=== PATIENT | male | born 1985 | race Caucasian/White ===

== ENCOUNTER 2017-03-23 13:50 | Inpatient (IN) | payer OTHER ==
[~2017-03-23] VITALS: Ht 188 cm; Wt 87.1 kg
--- NOTE | ~2017-03-23 | PA ---
Unit #: [id number] #: [id number] Patient: JOZEF HULL [id number] [facility] [address] [place] [address] [id number] MR#: [id number] NAME: JOZEF HULL ROOM: [facility] Age: 31 Sex: M Admission Date: 03/23/2017 : 1985 Date of Assessment: 03/24/2017 Attending Physician: Dean Bolanos M.D. Admitting Physician: Dean Bolanos M.D. Primary Care Physician: Primary Care Physician No PSYCHIATRIC ASSESSMENT DATE OF SERVICE 03/24/2017. INFORMANTS The patient, reliable and OLgila SCHULER. CHIEF COMPLAINT Opioid detox. HISTORY OF PRESENT ILLNESS Jozef is a 31-year-old man who presents that he has been unable to maintain sobriety from heroin use and he says "I want to end it all," but denied specific suicidal ideation, intent, or plan. He was readmitted for further detox. PAST PSYCHIATRIC HISTORY One previous admission to this facility for what appeared to be a substance-induced psychosis. He has no other psychiatric treatment plan at this point. FAMILY PSYCHIATRIC HISTORY None reported. SOCIAL HISTORY The patient is single and has some psychosocial support. Please see previous assessments for details. PAST MEDICAL HISTORY No chronic medical problems. MEDICATIONS None currently. ALLERGIES No known medication allergies. SUBSTANCE USE HISTORY The patient has a long history of opioid and amphetamine abuse. MENTAL STATUS EXAMINATION The patient presented as a mildly disheveled man, who appeared his stated age. He was cooperative with the examination. His speech was spontaneous and easily understood. His musculoskeletal examination was calm. His Unit #: [id number] #: [id number] Patient: JOZEF HULL mood was mildly anxious with a congruent affect. He was alert and fully oriented. Memory and concentration were fair. Thought processes were goal directed with no active psychosis. He denied suicidal ideation, intent, or plan. Insight and judgment, fair. Fund of knowledge and abstraction, fair. ASSETS AND LIABILITIES The patient knows local resources and presents voluntarily for treatment. Liabilities include difficulty maintaining sobriety and erratic housing and employment. ADMITTING DIAGNOSES AXIS I: Opioid dependence with withdrawal, uncomplicated; substance- induced mood disorder; and depressed. AXIS II: No diagnosis. AXIS III: Polysubstance withdrawal. AXIS IV: AXIS V: PSYCHIATRIC PLAN The patient was admitted and placed on the opioid detox protocol. Celexa 20 mg will be added for control of depression and trazodone as needed for insomnia. He will enroll in dual diagnosis groups and activities, and a physical examination and laboratory studies will be ordered and reviewed. TREATMENT GOALS Resolution of SI, improvement in insight, establishment of sobriety, and improvement in coping skills. DISCHARGE PLANNING Follow up with [facility]. ESTIMATED LENGTH OF STAY 5 days. Dictated by... Dean Bolanos M.D. IGNACIA/kellie TD: 03/27/2017 13:37 JOB #: [id number] PSYCHIATRIC ASSESSMENT Page 1 of 1 X Dean Bolanos MD X PSYCHIATRIC ASSESSMENT
--- NOTE | ~2017-03-23 | DS ---
Unit #: [id number] #: [id number] Patient: BESSY MILTON [id number] [facility] [address] [place] [address] [id number] MR#: [id number] NAME: BESSY MILTON ROOM: [facility] Age: 31 Sex: M Admission Date: 03/23/2017 : 1985 Discharge Date: 03/27/2017 Attending Physician: Dean Bolanos M.D. Primary Care Physician: Primary Care Physician No DISCHARGE SUMMARY REASON FOR ADMISSION Mr. Milton is a 31-year-old man, who presented reporting increasing use of heroin and says "I want to end it all." He was unable to contract for safety and was admitted for stabilization. DIAGNOSTIC STUDIES LABORATORY RESULTS: HIV and hepatitis panel were negative. HOSPITAL COURSE The patient was admitted and placed on the opioid detox protocol. Celexa 20 mg added for depression with trazodone as needed for insomnia. He participated in groups and activities and was an appropriate participant with no significant sequelae from his discharge. On the date of discharge, he was able to contract for safety in the outpatient setting and had made arrangements for outpatient care. DISCHARGE DIAGNOSES AXIS I: Opioid dependence withdrawal, uncomplicated and amphetamine abuse. AXIS II: No diagnosis. AXIS III: None acute. AXIS IV: AXIS V: DISCHARGE INSTRUCTIONS The patient is to follow up with primary care physician and with [facility]. DISCHARGE MEDICATIONS Celexa 20 mg daily for depression and trazodone 50 mg at bedtime as needed for insomnia. CONDITION AT DISCHARGE Improved. PROGNOSIS Fair to good. DIET AND ACTIVITY Ad karen. Unit #: [id number] #: [id number] Patient: BESSY MILTON Dictated by... Dean Bolanos M.D. [facility]/kellie TD: 03/29/2017 09:18 JOB #: [id number] DISCHARGE SUMMARY Page 1 of 1 X Dean Bolanos MD X DISCHARGE SUMMARY
--- NOTE | ~2017-03-23 | HP ---
Unit #: [id number] #: [id number] Patient: JOZEF HULL [id number] [facility] [address] [place] [address] [id number] I MR#: [id number] NAME: JOZEF HULL ROOM: P214 Age: 31 Sex: M Admission Date: 03/23/2017 : 1985 Attending Physician: Dean Bolanos M.D. Admitting Physician: Dean Bolanos M.D. Primary Care Physician: Primary Care Physician No HISTORY AND PHYSICAL HISTORY OF PRESENT ILLNESS Jozef is a 31 year old admitted to [address] [place] [address] because of his continued illicit substance abuse which includes IV heroin, amphetamines, benzodiazepines and spice. PAST SURGICAL HISTORY Nothing reported. ALLERGIES No known drug allergies. SOCIAL HISTORY He smokes 1 pack per day. Drinks alcohol frequently. Admits to a long history of illicit substance abuse to include IV heroin. FAMILY HISTORY Medically noncontributory. REVIEW OF SYSTEMS CONSTITUTIONAL: No fever or chills. HEENT: Denies any sore throat, ear pain or runny nose. CARDIOVASCULAR: Denies chest pain, irregular heart rhythm or palpitations. CHEST: Denies shortness of breath or cough. No hemoptysis. GASTROINTESTINAL: Denies nausea, vomiting, diarrhea or chronic constipation. ENDOCRINE: Denies history of increased thirst or urination. No recent significant weight loss or gain. GENITOURINARY: Denies dysuria, frequency, or hematuria. SKIN: Denies any rashes. HEMATOLOGIC: Denies history of increased bleeding or bruising. MUSCULOSKELETAL: Denies any hot, swollen joints. No generalized muscle pain. NEUROLOGIC: Denies problems with vision or speech. No frequent, severe headaches. No numbness, tingling or weakness in any extremities. Denies loss of bladder or bowel control. CURRENT MEDICATIONS 1. Detox protocol. 2. Celexa 20 mg daily. PHYSICAL EXAMINATION GENERAL: Alert, well-nourished, in no apparent distress. VITAL SIGNS: Blood pressure 124/74, heart rate 68, respirations 16, Unit #: [id number] #: [id number] Patient: JOZEF HULL temperature 98.6. WEIGHT: 192. HEIGHT: 6 feet 2 inches. SKIN: Warm and dry without rash or lesion. HEENT: Normocephalic. TMs not viewed. Oral and nasal passages clear. Conjunctivae clear. PERRLA. EOMs intact. NECK: Supple without lymphadenopathy or thyromegaly. HEART: Regular rate and rhythm without murmur. LUNGS: Clear. ABDOMEN: Soft, nontender. : Not done. EXTREMITIES: No evidence of cyanosis, clubbing or edema. Moves all without focal deficit. NEUROLOGICAL: Grossly within normal limits. Cranial Nerves: II: Visual gupta are intact. III, IV AND : Extraocular movements are intact. Pupils are equal, round and reactive to light. V: Facial sensation is grossly normal. VII: Facial movements and expression are normal. VIII: Auditory acuity grossly intact. IX, X: Uvula is midline. Phonation is normal. XI: Patient shrugs shoulders and turns head normally. XII: Tongue protrudes in the midline. Sensory and Motor Function: Sensory and motor sensation is grossly normal. Motor: moves all extremities well. Coordination: Gait is normal. Deep Tendon Reflexes: Intact. IMPRESSION Psychiatric admission. RECOMMENDATIONS PSYCHIATRIC: Per psychiatrist. MEDICAL: See no contraindication to participate in facility's activities. MEDICAL PROGNOSIS Good. MEDICAL CONDITION Stable. Dictated by... Anne Mascorro P.A.-C. for Michele Rogers/kerrie TD: 03/24/2017 15:22 JOB #: [id number] Unit #: [id number] #: [id number] Patient: JOZEF HULL HISTORY AND PHYSICAL Page 1 of 1 X Anne Mascorro HISTORY AND PHYSICAL
--- NOTE | ~2017-03-23 | PN ---
Unit #: [id number] #: [id number] Patient: JOZEF HULL [id number] [facility] [address] [place] [address] [id number] MR#: [id number] NAME: JOZEF HULL ROOM: P214 Age: 31 Sex: M Admission Date: 03/23/2017 : 1985 Attending Physician: Dean Bolanos M.D. Admitting Physician: Dean Bolanos M.D. Primary Care Physician: Primary Care Physician No BAKARI PROGRESS NOTES DATE 03/25/2017 DISCUSSION Jozef continues to have active detox symptoms today. His mood is irritable with a congruent affect. He is alert and fully oriented with no psychosis and no suicidal ideation. ASSESSMENT Opiate dependence. PLAN Continue current treat plan. Dictated by... Michele Lopez/gomez TD: 03/29/2017 22:36 JOB #: [id number] [facility] PROGRESS NOTES Page 1 of 1 X Dean Bolanos MD PROGRESS NOTE
--- NOTE | ~2017-03-23 | A ---
[facility] Nutrition Therapy DATE: 03/24/17 Patient: BESSY HULL Physician: COLETTE Address: [address] [place] [address] Room/Bed: [address], Zip: [place] [address] Admit Date: 03/23/17 Date of : [birth year] Height: 6 2 Weight: [phone] NUTRITIONAL ASSESSMENT: REASON: UNINTENTIONAL WEIGHT LOSS PATIENT ADMITTED FOR DETOX PMH: PSYCHOSIS Anthropometrics: HT: 74", WT: 192#, BMI: 24.6 Labs: 03/24/17- NUTRITIONAL LABS WNL Meds: CELEXA, DESYREL, DETOX PROTOCOL Assessment: PATIENT IS A 31 Y/O MALE ADMITTED FOR DETOX. PATIENT IS CURRENTLY UNEMPLOYED, HOMELESS, SMOKES 1 PPD, AND HAS DAILY USE OF COCAINE, MARIJUANA, HEROIN, METH, AND XANAX. IT IS NOTED THAT PATIENT HAS A HX OF INPATIENT PSYCH AND CHEMICAL DEPENDENCY HOSPITALIZATION AND HE HAS BEEN NON-COMPLIANT WITH HIS MEDICATIONS SINCE HIS LAST D/C. UPON ADMIT PATIENT STATED A FAIR APPETITE WITH NO RECENT WEIGHT CHANGES, AND HE IS NOT SLEEPING. WEIGHT HX PER [employer] SHOWS A 12# WEIGHT GAIN X 1 YEAR. NURSING REPORTS GOOD PO INTAKES. THERE ARE NO SKIN OR GI ISSUES NOTED ATT. PATIENT IS ON A REGULAR DIET WITH NO CAFFEINE, AND HIS BMI IS WITHIN A HEALTHY RANGE. Dx: NO NUTRITION DX Intervention: REGULAR DIET WITH NO CAFFEINE, DETOX, MEDS PER MD, PSYCH Monitoring, Evaluation and Goals: 1. ADEQUATE PO INTAKES >50% OF MEALS 2. PREVENT, CORRECT MICRO/MACRO NUTRIENT DEFICIENCIES MONITOR: WEIGHTS, LABS, PO/FLUID INTAKES Recommendations: 1. CONTINUE REGULAR DIET WITH NO CAFFEINE TOLERATED. 2. ENCOURAGE ADEQUATE PO AND FLUID INTAKES RD TO F/U PER PROTOCOL AND PRN R/T PATIENT NOT CURRENTLY AT NUTRITIONAL RISK [facility] Nutrition Therapy DATE: 03/24/17 Patient: BESSY HULL Physician: COLETTE Address: [address] [place] [address] Room/Bed: [address], Zip: [place] [address] Admit Date: 03/23/17 Date of : [birth year] Height: 6 2 Weight: [phone] Respectfully, FERNANDO LION RD, LD [facility] cc: client file
[2017-03-24 09:39] LABS: URINE APPEARANCE CLEAR; URINE BILIRUBIN NEG (NEG); URINE BLOOD NEG (NEG); URINE COLOR YELLOW; URINE GLUCOSE NEG (NEG); URINE KETONE NEG (NEG); URINE LEUKOCYTE ESTERASE NEG (NEG); URINE NITRATE NEG (NEG); URINE PROTEIN NEG (NEG); URINE SPECIFIC GRAVITY 1.009 (1.003-1.035); URINE UROBILINOGEN 0.2 MG/DL (NEG)
[2017-03-24 09:45] LABS: BASOPHIL% 0.2 % (0-2.5); EOSINOPHIL# 0.2 X10e3 (0-0.7); EOSINOPHIL% 2.7 % (0.0-7.0); HEMATOCRIT 43.8 % (38.0-50.0); HEMOGLOBIN 14.8 gm/dL (13.0-16.0); LYMPHOCYTE# 2.9 X10e3 (1.0-3.5); LYMPHOCYTE% 40.1 % (17.0-45.0); MEAN CELL VOLUME 87.9 FL (83-96); MEAN CORPUSCULAR HEMOGLOBIN 29.6 PG (28-34); MEAN CORPUSCULAR HGB CONC 33.7 g/dL (30-36); MEAN PLATELET VOLUME 8.4 FL (6.5-11.5); MONOCYTE# 0.6 X10e3 (0-1.0); MONOCYTE% 8.3 % (3.0-12.0); NEUTROPHIL# 3.5 X10e3 (1.5-7.1); NEUTROPHIL% 48.7 % (40-75); PLATELET COUNT 306 X10e3 (140-420); RED BLOOD COUNT 4.98 X10e (3.90-5.60); RED CELL DISTRIBUTION WIDTH 13.1 % (11.0-15.5); WHITE BLOOD COUNT 7.2 X10e3 (4.0-10.5)
[2017-03-24 09:59] LABS: DIFF IND NO
[2017-03-24 10:01] LABS: ALBUMIN SERUM 3.7 g/dL (3.5-5.0); BILIRUBIN,TOTAL 0.4 mg/dL (0.2-2.0); CALCIUM SERUM 9.3 mg/dL (8.4-10.2); CREATININE SERUM 0.8 mg/dL (0.6-1.4); GLOM FILT RATE Estimated 119.9 mL/min (>60); POTASSIUM 4.8 mmol/L (3.5-5.1); PROTEIN TOTAL SERUM 6.3 g/dL (6.0-8.3)
[2017-03-24 10:20] LABS: AMPHETAMINE NEG (NEG); BARBITURATES NEG (NEG); BENZODIAZEPINES NEG (NEG); COCAINE POS (NEG); MARIJUANA POS (NEG); OPIATES NEG (NEG); TRICYCLIC ANTIDEPRESSANTS NEG (NEG); U METHADONE NEG (NEG)
[2017-03-29 07:03] LABS: HA AB IGM (HEPPAN) Nonreactive (()); HB CORE AB IGM (HEPPAN) Nonreactive (Nonreactive); HB S AG (HEPPAN) Nonreactive (Nonreactive); HEP C AB (HEPPAN) Nonreactive (Nonreactive); HEP C AB SIGNAL TO CUTOFF 0.02 ratio (<1.00)
== END 2017-03-27 10:30 | disposition home or self-care (01) | DRG 897 ==
LOC: POF 15:52 → P2S 15:52
PROVIDERS: Psychiatry & Neurology Psychiatry
PROC: HZ2ZZZZ Detoxification Services for Substance Abuse Treatment (ICD-10-PCS; principal; 2017-03-23)
DX: F11.23 Opioid dependence with withdrawal (principal); F11.24 Opioid dependence with opioid-induced mood disorder; F32.9 Major depressive disorder, single episode, unspecified; F17.200 Nicotine dependence, unspecified, uncomplicated
CPT/HCPCS: 80053; 80074; 80307; 81003; 85025; 86592; 87806